=== PATIENT | female | born 1990 | race Caucasian/White ===

== ENCOUNTER → 2018-01-20 | Outpatient (CLI) | payer OTHER | END | disposition home or self-care (01) | LOC: EDBD 18:19 → C.PAPS 18:19 | PROVIDERS: ATTEND Obstetrics & Gynecology | DX: Z01.419 Encounter for gynecological examination (general) (routine) without abnormal findings (principal) ==

== ENCOUNTER 2020-01-07 07:55 | Inpatient (IN) ==
[2020-01-07] MEDS ORDERED: LACTATED RINGER'S 1,000 ML IV PRN (17:16)
[2020-01-07] MEDS ORDERED: OXYTOCIN 30 UNITS/500 ML BAG IV PRN ×3 (17:16→22:06)
[2020-01-07 17:41] LABS: Hematocrit (blood only) 39.3 % (37-47); Hemoglobin 13.7 g/dL (12.0-16.0); Mean Corpuscular Hemoglobin 30.4 pg (25-34); Mean Corpuscular Volume 87.3 fL (80-100); Mean Platelet Volume 10.6 fL (7.4-10.4); Platelet Count 251 K/uL (130-400); RDW Coefficient of Variation 13.7 % (11.5-14.5); RDW Standard Deviation 43.8 fL (36.4-46.3); White Blood Count 10.09 K/uL (4.8-10.8)
[2020-01-07 17:46] LABS: Mean Corpuscular Hgb Conc 34.9 g/dL (32-36)
--- NOTE | 2020-01-07 18:17 | History & Physical Report ---
Date of Service January 07, 2020 Assessment & Plan (1) Supervision of normal intrauterine in multigravida: 29yo at 39.3 weeks GA. Presents for elective IOL. 1. Fetus: Cat 1 2. Labor: AROM clear. Will Augment if labor does not ensue following ROM 3. GBS negative. 4. Vitals: WNL Admission and Anticipated Discharge Date Admission Date: January 07, 2020 History of Present Illness Primary Care Provider: NO PCP 29yo at 39.3 weeks GA. Presents for elective IOL. Reports irregular contractions. Denies VB, LOF. Good FM. course has be uncomplicated to date. OB Labs: Blood Type B Positive 06/04/19 Antibody Screen NEGATIVE 06/04/19 Hemoglobin 12.7 g/dL (12.0-16.0) 10/20/19 Hematocrit 39.1 % (37-47) 10/20/19 Mean Corpuscular Volume 90.2 fL (80-100) 06/04/19 Platelet Count 251 K/uL (130-400) 06/04/19 Rubella IgG Antibody Immune (Immune) 06/04/19 Rapid Plasma Reagin Nonreactive (Nonreactive) 06/04/19 Hepatitis B Surface Antigen Neg (Neg) 06/04/19 HIV (1&2) Ab and P24 Ag, 4th Gener Neg (Neg) 06/04/19 Glucose 1 Hour 50 gm Load 90 mg/dl (70-130) 10/20/19 OB Optional Labs: Chlamydia trachomatis RNA NOT DETECTED (NOT DETECTED) 06/04/19 Neisseria gonorrhoeae RNA NOT DETECTED (NOT DETECTED) 06/04/19 Labs Reviewed: declines cf/sma and panorama declines quad screen Allergies Allergy/AdvReac Type Severity Reaction Status Date / Time No Known Drug Allergies Allergy Verified 01/06/20 11:51 Home Medications Home Medications Medication Instructions Recorded Confirmed Type prenat.vits,jaclyn,[id number] 1 tab PO DAILY 05/25/19 01/06/20 History lactobacillus combination no.8 PO 07/02/19 01/06/20 History Patient History Medical History (Updated 09/22/19 @ 10:29 by Corey Choudhary MD) Anxiety and depression History of abnormal cervical Pap smear Hx of varicella Family History (Updated 03/03/19 @ 11:25 by Nicole Valdes) Grandfather (Maternal) Diabetes Grandmother (Maternal) Osteoporosis Mother Fibromyalgia Diverticulitis Social History (Updated 05/25/19 @ 13:18 by Annmarie Bonilla) Smoking Status: Former smoker Hx Alcohol Use: No Hx Substance Use: No 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 Beliefs That Will Affect Care: None marital status: marital status details: Ayan Weaver (30) [phone] Current Living Situation: Spouse Current Living Situation Comment: lives with spouse and child, 1 dog current occupational status: employed 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 Other Information That Helps Us Care for You: No Feels Safe at Home: Yes Safety Concerns: Feels Safe At This Time Seatbelt Use: always Physical Exam Genitourinary: OB Exam Abdomen: + vertex Manual OB Exam: + cervical dilation 4 cm, + cervical effacement 80%, + station -2 and + amniotic fluid clear OB Exam Monitor Tracing: + external FHT monitor used, + external uterine monitor used, + category I and + normal FHT variability Results & Data ([facility]) Vital Signs (Past 12 Hours) Vital Signs Pulse BP 01/07/20 17:00 111 H 117/80 Coding Level of Care Code None Diagnoses Supervision of normal intrauterine in multigravida Z34.80
[2020-01-07] MEDS ORDERED: BUPIVACAINE 0.25% 30 ML VIAL ONE (19:11)
[2020-01-07] MEDS ORDERED: ePHEDrine sulfate 50 MG/ML AMP ONE (19:11)
[2020-01-07] MEDS ORDERED: fentaNYL 2MCG/ML ROPIV 1.25MG/ML 100 ML BAG EPI ONE (19:12)
[2020-01-07] MEDS ORDERED: fentaNYL citrate 100 MCG/2 ML VIAL ONE (19:12)
--- NOTE | 2020-01-07 19:35 | Anesthesiology Consultation ---
Date of Service January 07, 2020 Assessment & Plan Chart Review Chart Review: Acceptable Risk for Labor Epidural Consults Requested none ASA ASA2 Proposed Anesthesia Anesthesia Type: Labor Epidural Risk / Benefits Reviewed With: PT / POA / Parent / Guardian, Accepts Plan and Informed Consent Obtained History Height/Weight Height: 5 ft 6 in Weight: 94.986 kg Allergies Allergy/AdvReac Type Severity Reaction Status Date / Time No Known Drug Allergies Allergy Verified 01/06/20 11:51 Medications Home Medications Medication Instructions Recorded Confirmed Last Taken prenat.vits,jaclyn,[id number] 1 tab PO DAILY 05/25/19 01/06/20 Unknown lactobacillus combination no.8 PO 07/02/19 01/06/20 Unknown Active Medications Generic Name Dose Route Start Last Admin Trade Name Freq PRN Reason Stop Dose Admin Lactated Ringer's 1,000 mls @ 125 mls/hr 01/07/20 17:16 01/07/20 19:08 Lr IV 01/09/20 17:15 999 mls/hr .Q8H PRN Administration L&D Protocol Protocol Past Medical History Medical History Anxiety and depression History of abnormal cervical Pap smear Hx of varicella Exercise / Class Metabolic Activity II 4-5 Yardwork/Stairs/Walk up hill Past Family History Family History Grandfather (Maternal) Diabetes Grandmother (Maternal) Osteoporosis Mother Fibromyalgia Diverticulitis Past Surgical History Surgical History H/O colposcopy with cervical biopsy S/P wisdom tooth extraction Past Anesthesia History No Hx of Anesthesia Complications and No Family Hx of Anesthesia Complications History of PONV No Hx of PONV and No Hx of Motion Sickness Social History Smoking Status: Former smoker Hx Alcohol Use: No Hx Substance Use: No substance use type: does not use Physical Exam Vital Signs Last Vital Signs Temp 98.6 F 01/07/20 17:30 Pulse 78 01/07/20 19:09 Resp 18 01/07/20 19:09 BP 89/50 L 01/07/20 19:09 ENMT Mouth: no dentition abnormality Thyromental Distance: > or= 3.5 Finger Breadths Mallampati Class: II Neck normal visual inspection Respiratory normal respiratory effort Auscultation: lungs clear to auscultation bilaterally Cardiovascular Rate/Rhythm: regular rate and regular rhythm Testing Laboratory Results 01/07/20 17:34
[2020-01-07] MEDS ORDERED: NALOXONE HCL 1 MG in SODIUM CHLORIDE 0.9% 1000ML 1,000 ML IV PRN (19:58)
[2020-01-07] MEDS ORDERED: DiphenhydrAMINE HCL 50 MG/ML VIAL IV PRN (19:58)
[2020-01-07] MEDS ORDERED: ePHEDrine sulfate 50 MG/ML AMP IV PRN (19:58)
[2020-01-07] MEDS ORDERED: NALOXONE HCL 0.4 MG/1 ML VIAL/CARP IV PRN (19:58)
[2020-01-07] MEDS ORDERED: ONDANSETRON INJ 2 MG/ML 2 ML VIAL IV PRN (19:58)
[2020-01-07] MEDS ORDERED: fentaNYL 2MCG/ML ROPIV 1.25MG/ML 100 ML BAG EPI PRN (19:58)
[2020-01-07] MEDS ORDERED: ACETAMINOPHEN 325 MG TAB PO PRN (22:06)
[2020-01-07] MEDS ORDERED: BENZOCAINE 20% AER SPR 82.5 GM CAN EXT PRN (22:06)
[2020-01-07] MEDS ORDERED: HYDROCORTISONE ACETATE 25 MG SUPP PR PRN (22:06)
[2020-01-07] MEDS ORDERED: bisacodyL 10 MG SUPP PR PRN (22:06)
[2020-01-07] MEDS ORDERED: SUPERCREAM 0.870% 15 GM JAR EXT PRN (22:06)
[2020-01-07] MEDS ORDERED: DIPHTHERIA/TETANUS/PERTUSSIS 0.5 ML SYR/VIAL IM ONE (22:20)
--- NOTE | 2020-01-07 22:26 | Anesthesia Procedure Note ---
Date of Service January 07, 2020 Anesthesia Post Epidural Note Vital Signs Vital Signs: Temp Pulse Resp BP Pulse Ox 98.4 F 86 20 115/60 98 01/07/20 20:45 01/07/20 22:15 01/07/20 22:15 01/07/20 22:15 01/07/20 22:03 Notes Mental Status: alert / awake / arousable and participated in evaluation Nausea / Vomiting: adequately controlled Pain: adequately controlled Airway Patency, RR, SpO2: stable & adequate BP & HR: stable & adequate Hydration State: stable & adequate Neuraxial Anesthesia: was administered and sensory block is resolving Anesthetic Complications: no major complications apparent and Pt Satisfied with anesthetic care Epidural: Removed without complications and With tip intact
[2020-01-07] MEDS: IBUPROFEN 600 MG TAB PO PRN (22:28)
--- NOTE | 2020-01-08 01:14 | Delivery Summary ---
DATE OF OPERATION: 01/07/2020 PROCEDURE: Normal spontaneous vaginal delivery with left labial laceration repair. SURGEON: Corey Choudhary MD PREOPERATIVE DIAGNOSES: 1. Single intrauterine at 39+ weeks gestational age. 2. Elective induction of labor. POSTOPERATIVE DIAGNOSES: 1. Single intrauterine at 39+ weeks gestational age. 2. Elective induction of labor. 3. Status post procedure. ESTIMATED BLOOD LOSS: 200 mL. DRAINS: None. FLUIDS: Continuous lactated ringer. URINE OUTPUT: None. COMPLICATIONS: None. FINDINGS: Viable female infant with weight pending and Apgars of 8 and 9 at 1 and 5 minutes respectively. INDICATIONS: The patient is a 29-year-old G2, P1-0-0-1, admitted at 39 + weeks gestational age for elective induction of labor. At first evaluation, she was found to be 4 cm dilated, 75% effaced, -2 station. She underwent artificial rupture of membranes for copious clear fluid. The patient progressed rapidly in labor to complete-complete +2 station, at which time she felt the urge to push and pushed for approximately 2 contractions to achieve delivery. DESCRIPTION OF PROCEDURE: The patient progressed to 10 cm dilated 100% effaced, +2 station, pushed over intact perineum with epidural anesthesia and delivered a viable female infant with weight and Apgars are as noted above. Head of the delivered in TIFF position, restituted to left transverse. No nuchal cord was noted. Body and shoulders quickly followed. was noted to be vigorous upon delivery and 1-minute delayed cord clamping was initiated. Cord was then double clamped and cut. remained on maternal abdomen. Cord blood was obtained. Attention was then turned to deliver the placenta, which was delivered intact, 3-vessel cord, gentle cord traction. On inspection of perineum, vagina, and cervix, there was noted to be a small left labial laceration which was repaired with 2 interrupted stitch of 3-0 Vicryl. Needle, sponge and instrument counts were correct at the completion of the case. Both mother and stable in the immediate post-delivery period. I attest to the content of the Intraoperative Record and any orders documented therein. Any exception s are noted below.
[2020-01-08] MEDS: IBUPROFEN 600 MG TAB PO PRN ×5 (03:48→20:50)
--- NOTE | 2020-01-08 05:14 | Obstetrical Progress Note ---
Date of Service <Brown Chan MD - Last Filed: 01/08/20 07:13> January 08, 2020 Assessment & Plan <Bronw Chan MD - Last Filed: 01/08/20 07:13> (1) (spontaneous vaginal delivery): - Feels well today. Eating well, voiding well, ambulating well. - Pain well controlled with ibuprofen 600mg Q4H PRN. - Routine PPD care -- OOB, ambulation, diet progression as tolerated Day #:: 1 Subjective <Brown Chna MD - Last Filed: 01/08/20 07:13> Jackeline is a 29 y/o female who is now PPD #1 following elective IOL and subsequent at 39-3/7 weeks. Reports feeling well overall this morning. Endorses some abdominal cramping that is well managed on analgesics. Voiding without difficulty. Tolerating meals overnight and able to ambulate some. Is passing gas but not yet bowel movements. Some persistent lochia with some improvement this morning. Breast feeding without difficulty. Review of Systems Denies fever, chills, sweats Denies shortness of breath, difficulty breathing, chest pain, palpitations, chest pressure. Denies breast pain. Denies dysuria. Denies headache or changes in vision. Physical Exam <Brown Chan MD - Last Filed: 01/08/20 07:13> General: Alert, oriented. No acute distress. Cardiac: Regular rate and rhythm, no murmurs/rubs/gallops. Respiratory: Clear to auscultation bilaterally a/p, no wheezes/rales/rhonchi. No increased work of breathing. Symmetrical chest rise. No respiratory distress. Abdomen: Soft, nontender, nondistended. Bowel sounds present. Uterus: Uterine fundus firm, palpable 1 cm below umbilicus. Lower Extremities: No lower extremity edema or swelling. No deep calf pain. Shannan's negative bilaterally. Results & Data <Brown Chan MD - Last Filed: 01/08/20 07:13> Vital Signs (Past 12 Hours) Vital Signs Temp Pulse Pulse Resp BP BP Pulse Ox 01/08/20 04:30 36.3 C L 71 16 107/70 01/08/20 00:35 36.6 C 92 H 16 102/66 01/08/20 00:00 20 01/07/20 23:59 95 H 112/55 L 01/07/20 23:44 100 H 116/56 L 01/07/20 23:30 93 H 20 108/60 01/07/20 23:29 93 H 108/60 01/07/20 23:14 87 108/59 L 01/07/20 23:00 94 H 115/65 01/07/20 22:45 94 H 20 115/65 01/07/20 22:30 91 H 18 117/57 L 01/07/20 22:29 91 H 117/57 L 01/07/20 22:15 86 20 115/60 01/07/20 22:14 86 115/60 01/07/20 22:03 98 H 98 01/07/20 22:00 96 H 20 122/58 L 01/07/20 21:58 99 H 98 01/07/20 21:53 97 H 97 01/07/20 21:48 113 H 100 01/07/20 21:47 94 H 129/69 01/07/20 21:43 82 100 01/07/20 21:42 83 93 01/07/20 21:38 79 100 01/07/20 21:33 83 99 01/07/20 21:32 73 119/77 01/07/20 21:30 20 01/07/20 21:28 84 100 01/07/20 21:23 84 100 01/07/20 21:18 73 100 01/07/20 21:16 79 109/71 01/07/20 21:13 79 98 01/07/20 21:08 73 100 01/07/20 21:03 83 99 01/07/20 21:01 78 119/76 01/07/20 21:00 20 01/07/20 20:58 82 99 01/07/20 20:53 79 98 01/07/20 20:48 74 99 01/07/20 20:46 74 114/81 01/07/20 20:45 36.9 C 01/07/20 20:43 79 98 01/07/20 20:38 74 99 01/07/20 20:33 96 H 98 01/07/20 20:30 83 20 105/69 01/07/20 20:28 79 100 01/07/20 20:23 86 98 01/07/20 20:18 69 100 01/07/20 20:15 71 110/72 01/07/20 20:13 68 100 01/07/20 20:10 71 106/71 01/07/20 20:08 68 100 01/07/20 20:05 77 101/60 01/07/20 20:03 73 99 01/07/20 20:01 78 111/65 01/07/20 20:00 20 01/07/20 19:58 82 100 01/07/20 19:55 20 01/07/20 19:54 83 102/63 01/07/20 19:53 83 100 01/07/20 19:52 75 104/61 01/07/20 19:50 81 20 106/62 01/07/20 19:48 76 107/58 L 98 01/07/20 19:46 67 107/62 01/07/20 19:45 18 01/07/20 19:43 87 100 01/07/20 19:42 85 91 01/07/20 19:38 77 98 01/07/20 19:35 72 118/70 01/07/20 19:09 78 18 89/50 L 01/07/20 19:03 78 89/50 L 01/07/20 17:30 37.0 C 16 <Corey Choudhary MD - Last Filed: 01/08/20 07:38> Co-Signing Physician Notes Patient seen and evaluated and agree with the above findings and plan. Routine care Resident Activity Tracking <Brown Chan MD - Last Filed: 01/08/20 07:13> Resident Involvement: Resident Care Provided Care Provided: Adult Hospital Medicine and OB Delivery
[2020-01-08 06:34] LABS: Hematocrit (blood only) 36.1 % (37-47); Hemoglobin 12.5 g/dL (12.0-16.0)
[2020-01-08] MEDS: PRENATAL VITAMIN 1 TAB PO SCH (07:35)
[2020-01-08] MEDS: DOCUSATE SODIUM 100 MG CAP PO SCH ×2 (07:35→20:50)
[2020-01-08] MEDS ORDERED: bisacodyL 5 MG TABEC PO SCH (20:00)
[2020-01-08 22:50] VITALS: O2SAT 97
[2020-01-09] MEDS: IBUPROFEN 600 MG TAB PO PRN ×2 (05:04→09:39)
--- NOTE | 2020-01-09 05:13 | Obstetrical Progress Note ---
Date of Service <Brown Chan MD - Last Filed: 01/09/20 06:27> January 09, 2020 Assessment & Plan <Brown Chan MD - Last Filed: 01/09/20 06:27> (1) (spontaneous vaginal delivery): - Feels well today. Eating well, voiding well, ambulating well. - Pain well controlled with ibuprofen 600mg Q4H PRN. - Routine PPD care -- OOB and ambulation as tolerated today - stable for d/c today pending peds clearance Subjective <Brown Chan MD - Last Filed: 01/09/20 06:27> Jackeline is a 29 y/o female who is now PPD #2 following elective IOL and subsequent at 39-4/7 weeks. Reports feeling well overall this morning. Reports some abdominal cramping that is otherwise well managed on analgesics. Voiding without difficulty. Tolerating meals fine and able to ambulate some. Continues to pass gas but not yet bowel movements. Some persistent lochia with some improvement this morning. Breast feeding without difficulty. Review of Systems Denies fever, chills, sweats Denies shortness of breath, difficulty breathing, chest pain, palpitations, chest pressure. Denies breast pain. Denies dysuria. Denies headache or changes in vision. Physical Exam <Brown Chan MD - Last Filed: 01/09/20 06:27> General: Alert, oriented. No acute distress. Cardiac: Regular rate and rhythm, no murmurs/rubs/gallops. Respiratory: Clear to auscultation bilaterally a/p, no wheezes/rales/rhonchi. No increased work of breathing. Symmetrical chest rise. No respiratory distress. Abdomen: Soft, nontender, nondistended. Bowel sounds present. Uterus: Uterine fundus firm, palpable 2 cm below umbilicus. Lower Extremities: No lower extremity edema or swelling. No deep calf pain. Shannan's negative bilaterally. Results & Data <Brown Chan MD - Last Filed: 01/09/20 06:27> Vital Signs (Past 12 Hours) Vital Signs Temp Pulse Resp BP Pulse Ox 01/08/20 22:57 36.7 C 85 16 104/66 97 01/08/20 20:44 36.7 C 81 16 103/71 97 <Leticia Andre MD, FACOG - Last Filed: 01/09/20 07:28> Co-Signing Physician Notes Resident Physician Supervision Note: I interviewed and examined the patient. Discussed with Dr. Chan and agree with findings and plan as documented in the note. Any exceptions or clarifications are listed here: Doing well. Plan d/c later today. Instructions given. Documented By: Leticia Andre MD, FACOG Resident Activity Tracking <Brown Chan MD - Last Filed: 01/09/20 06:27> Resident Involvement: Resident Care Provided Care Provided: Adult Hospital Medicine and OB Delivery
[2020-01-09] MEDS: PRENATAL VITAMIN 1 TAB PO SCH (08:08)
[2020-01-09] MEDS: DOCUSATE SODIUM 100 MG CAP PO SCH (08:08)
[2020-01-09 11:07] VITALS: BP 110/66; PULSE 82; TEMP 97.7
== END 2020-01-09 14:10 | disposition home or self-care (01) | DRG 807 ==
LOC: 4S1 16:48 → 4S2 01-08 00:22